=== PATIENT | male | born 1960 | race Caucasian/White ===

== ENCOUNTER → 2018-01-16 | Outpatient (CLI) | payer MEDICAID | LOC: FIMAGING 10:35 | PROVIDERS: ATTEND Physician Assistant Medical | DX: M25.562 Pain in left knee (principal) ==

== ENCOUNTER → 2018-08-15 | Outpatient (CLI) | payer MEDICAID ==
[~2018-08-15] MED LIST: GADOBUTROL 10 ML VIAL IVP ONE
== END ==
LOC: FIMAGING 12:20
PROVIDERS: ATTEND Physician Assistant Medical
DX: D18.03 Hemangioma of intra-abdominal structures (principal); K76.9 Liver disease, unspecified
CPT/HCPCS: A9585